=== PATIENT | male | born 1960 | race Caucasian/White ===

== ENCOUNTER 2016-09-29 06:53 | Day surgery (SDC) | payer OTHER ==
[~2016-09-29] VITALS: Ht 170.2 cm; Wt 69.0 kg
[~2016-09-29 06:53] MED LIST: BACTRIM DS1 TAB PO
[2016-09-29] MEDS ORDERED: NORCO1 TA1 PO (10:17)
--- NOTE | 2016-09-29 10:19 | Provider's Discharge Care Plan ---
Problem, Goal, Plan Problem List 1. S/P inguinal hernia repair
--- NOTE | 2016-09-29 10:19 | Provider's Discharge Care Plan ---
Problem, Goal, Plan Problem List 1. S/P inguinal hernia repair
--- NOTE | 2016-09-29 10:53 | OPERATIVE REPORT ---
DATE OF SURGERY: 09/29/2016 SURGEON: Jose Russo MD PREOPERATIVE DIAGNOSIS: 1. Left inguinal hernia POSTOPERATIVE DIAGNOSIS: 1. Left inguinal hernia PROCEDURE PERFORMED: 1. Left inguinal herniorrhaphy ANESTHESIA: General. INDICATIONS: The patient is a 55-year-old man with a painful left groin bulge. SURGICAL TECHNIQUE: The patient was taken to the operating room, where a general anesthetic was administered and the patient prepped and draped in the usual sterile fashion. IV antibiotics were administered and an ilioinguinal nerve block and regional field block was done using 0.5% Marcaine with epinephrine. An incision was made following the lines of skin tension over the internal ring and carried down through skin and subcutaneous tissue with sharp and electrocautery dissection. The external oblique was split along its fibers and the underlying ilioinguinal nerve found lying on the cremaster fibers was preserved. The cord was skeletonized of cremaster fibers, and there was a relatively short hernia sac with a larger lipoma protruding through the internal ring. The lipoma was removed with electrocautery. The hernia sac was inverted, as it was not particularly long or large. The medial portion of the inguinal floor was loose, but not herniated. The inguinal floor was imbricated with 2 running layers of 2-0 polypropylene suture, tightening up the internal ring to fingertip snugness. The cord was not strangulated. A piece of woven polypropylene mesh was tailored to suit the inguinal floor. It was sutured along its lower and upper edges with running 3-0 Prolene suture, taking care to avoid the iliohypogastric nerve. Laterally, the mesh was split and drawn up around the cord structures. A single [id number] 3-0 Prolene was placed laterally to tension the prosthetic ring. The ends of the mesh were tucked up under external oblique. The external oblique was reapproximated using running 3-0 Vicryl suture. Irrigation was used before closure. The skin was closed with running subcuticular 4-0 Vicryl suture. Steri-Strips and dressings were placed. The patient left in good condition.
== END 2016-09-29 13:46 | disposition home or self-care (01) ==
LOC: OR SRH 06:53 → OB SRH 06:55 → OR SRH 07:30
PROVIDERS: Surgery
PROC: 0YU60JZ Supplement Left Inguinal Region with Synthetic Substitute, Open Approach (ICD-10-PCS; principal; 2016-09-29 08:30)
DX: K40.90 Unilateral inguinal hernia, without obstruction or gangrene, not specified as recurrent (principal); D17.6 Benign lipomatous neoplasm of spermatic cord